=== PATIENT | male | born 1975 | race Caucasian/White ===

== ENCOUNTER 2019-04-17 09:09 | Emergency (ER) | payer SELFPAY ==
[2019-04-17] MEDS ORDERED: LEVALBUTEROL 1.25 MG/3 ML NEB ONE (09:36)
[2019-04-17] MEDS ORDERED: IBUPROFEN 400 MG TAB ONE (09:36)
[2019-04-17] MEDS ORDERED: BENZONATATE 100 MG CAP PO ONE (10:51)
[2019-04-17] MEDS ORDERED: ACETAMINOPHEN 325 MG TABLET ONE (10:51)
[2019-04-17] MEDS ORDERED: dexAMETHasone 10 MG/ML VIAL ONE (11:27)
--- NOTE | 2019-04-17 11:38 | ER ---
Nurse's Notes [facility] Name: Keaton Stevens Age: 43 yrs Sex: Male : 1975 Arrival Date: 04/17/2019 Time: 09:13 Bed 20 Private MD: Diagnosis: Acute bronchitis Presentation: 04/17 09:18 Presenting complaint: Body aches, productive cough with yellow sputum, sore throat, and hb subjective fever x 2 days. Transition of care: patient was not received from another setting of care. Onset of symptoms was April 16, 2019. Risk Assessment: Do you want to hurt yourself or someone else? Patient reports no desire to harm self or others. Initial Sepsis Screen: Does the patient meet any 2 criteria? No. Patient's initial sepsis screen is negative. Does the patient have a suspected source of infection? No. Patient's initial sepsis screen is negative. Care prior to arrival: None. 09:18 Method Of Arrival: Ambulatory hb 09:18 Acuity: ZULEMA 4 hb Triage Assessment: 09:20 General: Appears in no apparent distress. comfortable, ill, Behavior is calm, bp cooperative, appropriate for age. Pain: Denies pain. EENT: Reports nasal congestion pain when swallowing. Neuro: No deficits noted. Cardiovascular: No deficits noted. Respiratory: No deficits noted. GI: No signs and/or symptoms were reported involving the gastrointestinal system. : No signs and/or symptoms were reported regarding the genitourinary system. Derm: No deficits noted. Musculoskeletal: No deficits noted. Historical: - Allergies: 09:19 No Known Allergies; hb - Home Meds: 09:19 None [Active]; hb - PMHx: 09:19 None; hb - PSHx: 09:19 None; hb - Immunization history:: Adult Immunizations up to date. - Social history:: Smoking status: Patient uses tobacco products, smokes one-half pack cigarettes per day. - Ebola Screening: : No symptoms or risks identified at this time. Screenin: Abuse screen: Denies threats or abuse. Denies injuries from another. Nutritional bp screening: No deficits noted. Tuberculosis screening: No symptoms or risk factors identified. Fall Risk None identified. Assessment: :26 General: SEE TRIAGE NOTE. bp 10:16 Reassessment: PT TO XRAY. bp Vital Signs: 09:19 BP 106 / 66; Pulse 52; Resp 16; Temp 97.9(O); Pulse Ox 97% on R/A; Weight 74.84 kg; hb Height 5 ft. 7 in. (170.18 cm); Pain 4/10; 09:19 Body Mass Index 25.84 (74.84 kg, 170.18 cm) ED Course: 09:13 Patient arrived in ED. mr 09:15 Neville Santiago, RN is Primary Nurse. bp 09:19 Triage completed. hb 09:19 Guido Mendenhall PA is PHCP. [facility] 09:19 Ramiro Reyes MD is Attending Physician. jmm 09:19 Arm band placed on. hb 09:26 Patient has correct armband on for positive identification. Bed in low position. Call bp light in reach. Side rails up X2. Adult w/ patient. 09:42 Strep swab sent to lab. bp 10:37 Chest Pa And Lat (2 Views) XRAY In Process Unspecified. EDMS 10:46 Throat Culture Sent. bp 11:44 No provider procedures requiring assistance completed. Patient did not have IV access aj during this emergency room visit. Administered Medications: 09:42 Drug: Xopenex (3) 1.25 mg Route: Inhalation; bp 09:42 Drug: Motrin 800 mg Route: PO; bp 10:04 Follow up: Response: No adverse reaction bp 10:54 Drug: Tylenol 650 mg Route: PO; bp 11:30 Follow up: Response: No adverse reaction bp 10:54 Drug: Tessalon Perle 200 mg Route: PO; bp 11:31 Follow up: Response: No adverse reaction bp 11:31 Drug: Decadron 10 mg Route: IM; Site: right deltoid; bp Outcome: 11:37 Discharge ordered by . adam 11:44 Discharged to home ambulatory. aj 11:44 Condition: good 11:44 Discharge instructions given to patient, family, Instructed on discharge instructions, follow up and referral plans. medication usage, Demonstrated understanding of instructions, follow-up care, medications, Prescriptions given X 2. 11:45 Patient left the ED. aj Signatures: Dispatcher [employer] EDMS Erika Fleming RN RN aj Mickail, Joel, PA PA Jessie Cruz mr Lotus Bullock RN RN Jack, Neville, RN RN bp
--- NOTE | 2019-04-17 11:39 | EDPHYS ---
Physician Documentation [facility] Name: Keaton Stevens Age: 43 yrs Sex: Male : 1975 Arrival Date: 04/17/2019 Time: 09:13 Bed 20 Private MD: ED Physician Ramiro Reyes HPI: 04/17 09:33 This 43 yrs old Male presents to ER via Ambulatory with complaints of Flu jmm Symptoms. 09:33 Onset: The symptoms/episode began/occurred gradually, 2 day(s) ago. Associated signs jmm and symptoms: Pertinent positives: abdominal pain, cough, sore throat. This is a 43 year old male with no chronic medical conditions that presents to the ED with complaints of cough, congestion, sore throat and abdominal pain beginning approx 2 days ago. Patient states he was in contact with children with similar symptoms. Denies recent abx use, denies recent travel. . Historical: - Allergies: 09:19 No Known Allergies; hb - Home Meds: 09:19 None [Active]; hb - PMHx: 09:19 None; hb - PSHx: 09:19 None; hb - Immunization history:: Adult Immunizations up to date. - Social history:: Smoking status: Patient uses tobacco products, smokes one-half pack cigarettes per day. - Ebola Screening: : No symptoms or risks identified at this time. ROS: 09:33 Cardiovascular: Negative for chest pain, palpitations, and edema. jmm 09:33 Constitutional: Positive for body aches, chills. 09:33 ENT: Positive for sore throat. 09:33 Respiratory: Positive for cough. 09:33 Abdomen/GI: Positive for abdominal pain, Negative for nausea and vomiting, diarrhea. 09:33 All other systems are negative. Exam: 09:33 Head/Face: atraumatic. Eyes: EOMI, no conjunctival erythema appreciated jmm 09:33 Neck: Trachea midline, Supple Chest/axilla: Normal chest wall appearance and motion. 09:33 Respiratory: Normal respirations, no respiratory distress appreciated 09:33 Back: Normal ROM Skin: General appearance color normal MS/ Extremity: Moves all extremities, no obvious deformities appreciated, no edema noted to the lower extremities Neuro: Awake and alert, normal gait Psych: Behavior is normal, Mood is normal, Patient is cooperative and pleasant 09:33 Constitutional: The patient appears in no acute distress, alert, awake. 09:33 ENT: TM's: are normal, Posterior pharynx: erythema, that is mild. 09:33 Cardiovascular: Rate: normal, Rhythm: regular, Pulses: no pulse deficits are appreciated. 09:33 Abdomen/GI: Inspection: abdomen appears normal, Bowel sounds: normal, Palpation: abdomen is soft and non-tender, in all quadrants. Vital Signs: 09:19 BP 106 / 66; Pulse 52; Resp 16; Temp 97.9(O); Pulse Ox 97% on R/A; Weight 74.84 kg; hb Height 5 ft. 7 in. (170.18 cm); Pain 4/10; 09:19 Body Mass Index 25.84 (74.84 kg, 170.18 cm) hb MDM: 09:27 Patient medically screened. [facility] 11:34 Data reviewed: vital signs, nurses notes. Counseling: I had a detailed discussion with [facility] the patient and/or guardian regarding: the historical points, exam findings, and any diagnostic results supporting the discharge/admit diagnosis, lab results, radiology results, the need for outpatient follow up, to return to the emergency department if symptoms worsen or persist or if there are any questions or concerns that arise at home. ED course: Patient is alert and non toxic in appearance. Patient is given strict return precautions. Patient understood and agrees with the plan of care. . 08 09:32 Order name: Strep; Complete Time: 09:51 [facility] 04/17 09:57 Order name: Throat Culture [facility] 04/17 09:32 Order name: Chest Pa And Lat (2 Views) XRAY [facility] Administered Medications: 09:42 Drug: Xopenex (3) 1.25 mg Route: Inhalation; bp 09:42 Drug: Motrin 800 mg Route: PO; bp 10:04 Follow up: Response: No adverse reaction bp 10:54 Drug: Tylenol 650 mg Route: PO; bp 11:30 Follow up: Response: No adverse reaction bp 10:54 Drug: Tessalon Perle 200 mg Route: PO; bp 11:31 Follow up: Response: No adverse reaction bp 11:31 Drug: Decadron 10 mg Route: IM; Site: right deltoid; bp Disposition: 12:38 Co-signature as Attending Physician, Ramiro Reyes MD I agree with the assessment and kdr plan of care. Disposition: 04/17/19 11:37 Discharged to Home. Impression: Acute bronchitis. - Condition is Stable. - Discharge Instructions: Acute Bronchitis, Adult. - Prescriptions for Tessalon Perles 100 mg Oral Capsule - take 1 capsule by ORAL route every 8 hours As needed; 30 capsule. Albuterol Sulfate 90 mcg/actuation - inhale 1-2 puff by INHALATION route every 4-6 hours; 1 Inhaler. - Medication Reconciliation Form, Thank You Letter, Antibiotic Education, Prescription Opioid Use form. - Follow up: Private Physician; When: 2 - 3 days; Reason: Recheck today's complaints, Continuance of care, Re-evaluation by your physician. Signatures: Dispatcher [employer] EDErika Black RN RN Ramiro Agrawal MD MD kdr Mickail, Joel, PA PA jmm Baxter, Heather, RN RN Neville Del Real RN RN bp Corrections: (The following items were deleted from the chart) 11:45 11:37 04/17/2019 11:37 Discharged to Home. Impression: Acute bronchitis. Condition is aj Stable. Forms are Medication Reconciliation Form, Thank You Letter, Antibiotic Education, Prescription Opioid Use. Follow up: Private Physician; When: 2 - 3 days; Reason: Recheck today's complaints, Continuance of care, Re-evaluation by your physician. adam
--- NOTE | 2019-04-17 11:53 | RAD REPORT ---
EXAM DESCRIPTION: RAD - Chest Pa And Lat (2 Views) - 04/17/2019 10:26 am CLINICAL HISTORY: Cough, fever, body aches COMPARISON: None. TECHNIQUE: PA and lateral views of the chest were obtained. FINDINGS: The lungs are clear of a focal mass or infiltrate. No failure or volume overload. Intersti tial pattern is minimally prominent believed to be baseline. No peribronchial thickening. Trachea is midline. Heart size is normal and central vasculature is within normal limits. No pleural effusion or pneumothorax seen. No acute bony finding noted. No aortic abnormality. IMPRESSION: No acute cardiopulmonary process.
== END 2019-04-17 11:45 | disposition home or self-care (01) ==
LOC: ER 09:09
DX: J20.9 Acute bronchitis, unspecified (principal); F17.210 Nicotine dependence, cigarettes, uncomplicated
CPT/HCPCS: 71046; 87070; 87081; 96372; 99284; J1100